=== PATIENT | male | born 1995 | race Caucasian/White ===

== ENCOUNTER 2021-02-27 23:28 | Emergency (ER) | payer OTHER ==
[~2021-02-27] VITALS: Ht 180.3 cm; Wt 74.8 kg
[~2021-02-27 23:28] MED LIST: AMOCLA875 PO; AMOX1XR PO; CITA20 PO; CLIN150 PO; CODACE30 PO; CODACEE120 PO; HYDACE5 PO; IBUP800 PO; Norco 5-325 Ta1 EACH PO; RXOXYACE PO; Vibramycin100 MG PO
== END 2021-02-28 01:41 | disposition left against medical advice (07) ==
LOC: ER 23:28
DX: Z53.21 Procedure and treatment not carried out due to patient leaving prior to being seen by health care provider (principal)